=== PATIENT | male | born 1960 | race Caucasian/White ===

== ENCOUNTER → 2020-11-19 | Outpatient (CLI) | payer OTHER ==
[~2020-11-19] MED LIST: ADULT LOW DOSE81 MG PO; FISH OIL 1,001000 M2 PO; LIPITOR10 MG PO; VITAMIN B-12500 MCG PO
== END ==
LOC: M.LAB 05:03
PROVIDERS: ATTEND Anesthesiology
DX: E87.6 Hypokalemia (principal)